=== PATIENT | male | born 1955 | race Caucasian/White ===

== ENCOUNTER → 2018-12-15 | Day surgery (SDC) | payer OTHER ==
[~2018-12-15] MED LIST: BUMETANIDE1 MG PO; CARVEDILOL12.5 MG PO; FOLIC ACID1 MG PO; INSULIN REGULAR, HUMAN 100 UNIT/1 ML 3ML VIAL ONE; LACTULOSE10 GM/151 PO; LEVEMIR100 UNIT/1 SQ; NOVOLOG100 UNITS1 SQ; OR PHACO EYE KIT ONE; PANTOPRAZOLE SO20 MG PO; PREOP PHACO EYE KIT ONE; SPIRONOLACTONE25 MG PO; Vitamin C PO; XIFAXAN550 MG PO; carvedilol
--- OUTSIDE RECORDS SUMMARY | 2018-12-15 05:16 | XMS REPORT | Continuity of Care Document ---
Author Author [place] Organization [place] Address Unknown Phone Unavailable Care Team Providers Care Melt Helper Name Role Phone Tell[employer] Information [employer] Unavailable Unavailable Problems Problem Status Onset Date Classification Date Reported Comments Source ASCITES Active 12/03/2018 [facility] BDDC ASCITES Active 12/01/2018 [facility] UNK Active 09/30/2018 [facility] EDG/C BANDING/COLON/MAC Active 09/30/2018 [facility] DDC // F/U VISIT Active 09/28/2018 [facility] Acquired hemolytic anemia Active Problem 12/10/2018 [facility] Ascites Active Problem 12/10/2018 [facility] Esophageal varices with bleeding Active Problem 12/10/2018 [facility] Overweight (Confirmed) Active Problem 12/10/2018 [facility] Chronic diastolic CHF (Confirmed) Active Problem 12/10/2018 [facility] CKD , stage III(Confirmed) Active Problem 12/10/2018 [facility] Chronic hepatitis C Resolved Problem 12/10/2018 [facility] Cirrhosis Active Problem 12/10/2018 [facility] Diabetes mellitus Active Problem 12/10/2018 [facility] Hepatic encephalopathy Active Problem 12/10/2018 [facility] High blood pressure Active Problem 12/10/2018 [facility] Atherosclerotic peripheral vascular disease Active Problem 12/10/2018 [facility] Continuous tobacco abuse Active Problem 12/10/2018 [facility] Poor compliance Active Problem 12/10/2018 [facility] Medications Medication Details Route Status Patient Instructions Ordering Provider Order Date Source Sodium Chloride 0.9% IV 1,000 mL 1,000 mL, Rate: 25 ml/hr, Infuse over: 40 hr, Route: IV, Dosing Weight 88.636 kg, Total Volume: 1,000, Start date: 11/16/18 7:56:00 CDT, Duration: 30 day, Stop date: 12/16/18 7:55:00 CDT, 2.13, m2 No Longer Active 11/16/2018 [facility] Aspirin 81 mg, PO, Daily Active 11/16/2018 [facility] Calcium Chloride 0.0014 MEQ/ML / Potassium Chloride 0.004 MEQ/ML / Sodium Chloride 0.103 MEQ/ML / Sodium Lactate 0.028 MEQ/ML Injectable Solution 1,000 mL, Rate: 25 ml/hr, Infuse over: 40 hr, Route: IV, Dosing Weight 88.545 kg, Total Volume: 1,000, Start date: 11/16/18 6:46:00 CDT, Duration: 30 day, Stop date: 12/16/18 6:45:00 CDT, 2.13, m2 Inactive 11/16/2018 [facility] Naloxone 0.4 mg, 1 mL, Route: IVP, Drug form: INJ, Q2MIN, Dosing Weight 88.545, kg, PRN Narcotic Reversal, Start date: 11/15/18 12:40:00 CDT, Duration: 8 doses or times, Stop date: Limited # of timesNotes: Same as Narcan No Longer Active 11/15/2018 [facility] Flumazenil 0.2 mg, 2 mL, Route: IVP, Drug form: INJ, PRN, Dosing Weight 88.545, kg, PRN Benzodiazepine Reversal, Initial dose, Start date: 11/15/18 12:40:00 CDT, Duration: 30 day, Stop date: 12/15/18 12:39:00 C DTNotes: (Same as: Romazicon) No Longer Active 11/15/2018 [facility] Ondansetron 4 mg, 2 mL, Route: IVP, Drug form: INJ, ONCE, Dosing Weight 88.545, kg, PRN Nausea & Vomiting, Start date: 11/15/18 12:40:00 CDTNotes: (Same as: Zofran) MEDICATION WASTE Product Size: 4 mg Product Wasted: ___ mg No Longer Active 11/15/2018 [facility] Metoprolol 1 mg, 1 mL, Route: IVP, Drug form: INJ, Q5Min, Dosing Weight 88.545, kg, PRN Other -See Comment, Start date: 11/15/18 12:40:00 CDT, Duration: 5 doses or times, Stop date: Limited # of timesNotes: (Same as: Lopressor) Push over 2 minutes No Longer Active 11/15/2018 [facility] carvedilol 12.5 mg oral tablet 12.5 mg=1 tab, PO, BID, # 60 tab, 3 Refill(s), [id number]2018 [facility] spironolactone 50 mg oral tablet 150 mg=3 tab, PO, Daily, # 90 tab, 1 Refill(s), [id number] Active 10/06/2018 [facility] pantoprazole 40 mg oral enteric coated tablet 40 mg=1 tab, PO, Daily, # 30 tab, 0 Refill(s) Active 10/06/2018 [facility] rifaximin 550 MG Oral Tablet [XIFAXAN] 550 mg=1 tab, PO, BID, # 60 tab, 11 Refill(s), Pharmacy: [facility] Active 10/05/2018 [facility] bumetanide 1 mg oral tablet 1 mg=1 tab, PO, BID, # 60 tab, 3 Refill(s), [id number] 10/05/2018 [facility] spironolactone 50 mg oral tablet 150 mg=3 tab, PO, Daily, X 30 day, # 90 tab, 3 Refill(s), [id number] No Longer Active 10/05/2018 [facility] Allergies, Adverse Reactions, Alerts Substance Category Reaction Severity Reaction type Status Date Reported Comments Source No Known Medication Allergies Assertion Drug allergy [facility] Immunizations No Data Provided for This Section Results Order Name Results Value Reference Range Date Interpretation Comments Source BODY FLUIDS Supernat BF Light Yellow *ABN* (12/08/18 10:00 AM) Colorless 12/08/2018 [facility] BODY FLUIDS Clarity BF Slight Cloudy (12/08/18 10:00 AM) Clear 12/08/2018 [facility] BODY FLUIDS CellCnt BF Type Paracen (12/08/18 10:00 AM) 12/08/2018 [facility] BODY FLUIDS Color BF Light Yellow (12/08/18 10:00 AM) Colorless 12/08/2018 [facility] BODY FLUIDS [place]o BF Occasional (12/08/18 10:00 AM) 12/08/2018 [facility] BODY FLUIDS Neutrophils BF 5 12/08/2018 [facility] BODY FLUIDS Macrophage BF 74 12/08/2018 [facility] BODY FLUIDS Lymph BF 21 12/08/2018 [facility] BODY FLUIDS Nucleated Cells BF 89 12/08/2018 [facility] BODY FLUIDS RBC BF 5100 12/08/2018 [facility] BODY FLUIDS CellCnt BF Type Paracen (12/03/18 10:35 AM) 12/03/2018 [facility] BODY FLUIDS Color BF Light Yellow (12/03/18 10:35 AM) Colorless 12/03/2018 [facility] BODY FLUIDS Macrophage BF 80 12/03/2018 [facility] BODY FLUIDS [place]o BF Occasional (12/03/18 10:35 AM) 12/03/2018 [facility] BODY FLUIDS Supernat BF Light Yellow *ABN* (12/03/18 10:35 AM) Colorless 12/03/2018 [facility] BODY FLUIDS Clarity BF Slight Cloudy (12/03/18 10:35 AM) Clear 12/03/2018 [facility] BODY FLUIDS Lymph BF 16 12/03/2018 [facility] BODY FLUIDS Nucleated Cells BF 64 12/03/2018 [facility] BODY FLUIDS RBC BF 3900 12/03/2018 [facility] BODY FLUIDS Neutrophils BF 4 12/03/2018 [facility] Culture: Aspirate/Body Fluid/Tissue 48 Hour Report - No Growth, Holding 12/03/2018 [facility] BODY FLUIDS Nucleated Cells BF 130 11/26/2018 [facility] BODY FLUIDS RBC BF 152 11/26/2018 [facility] BODY FLUIDS Comment BF Occasional signet ring cell seen. 11/26/2018 [facility] BODY FLUIDS Meso BF Occasional (11/26/18 12:15 PM) 11/26/2018 [facility] BODY FLUIDS Macrophage BF 89 11/26/2018 [facility] BODY FLUIDS Lymph BF 9 11/26/2018 [facility] BODY FLUIDS Neutrophils BF 2 11/26/2018 [facility] BODY FLUIDS Supernat BF Light Yellow *ABN* (11/26/18 12:15 PM) Colorless 11/26/2018 [facility] BODY FLUIDS Color BF Light Yellow (11/26/18 12:15 PM) Colorless 11/26/2018 [facility] BODY FLUIDS Clarity BF Clear (11/26/18 12:15 PM) Clear 11/26/2018 [facility] BODY FLUIDS CellCnt BF Type Paracen (11/26/18 12:15 PM) 11/26/2018 [facility] CHEM PANEL eGFR 59 11/26/2018 Result Comment: The eGFR is calculated using the CKD-EPI formula. In most young, healthy individuals the eGFR will be >90 mL/min/1.73m2. The eGFR declines with age. An eGFR of 60-89 may be normal in some populations, particularly the elderly, for whom the CKD-EPI formula has not been extensively validated. Use of the eGFR is not recommended in the following populations:

Individuals with unstable creatinine concentrations, including patients and those with serious co-morbid conditions.

Patients with extremes in muscle mass or diet.

The data above are obtained from the National Kidney Disease Education Program (NKDEP) which additionally recommends that when the eGFR is used in patients with extremes of body mass index for purposes of drug dosing, the eGFR should be multiplied by the estimated BMI. [facility] CHEM PANEL Calcium Lvl 8.0 8.5 - 10.5 11/26/2018 [facility] CHEM PANEL AGAP 11.7 10.0 - 20.0 11/26/2018 [facility] CHEM PANEL Potassium Lvl 4.7 3.5 - 5.1 11/26/2018 [facility] CHEM PANEL Chloride Lvl 107 95 - 109 11/26/2018 [facility] CHEM PANEL CO2 22 24 - 32 11/26/2018 [facility] CHEM PANEL Glucose Lvl 296 70 - 99 11/26/2018 [facility] CHEM PANEL BUN 35 7 - 22 11/26/2018 [facility] CHEM PANEL Creatinine Lvl 1.29 0.50 - 1.40 11/26/2018 [facility] CHEM PANEL Sodium Lvl 136 135 - 145 11/26/2018 [facility] BODY FLUIDS Supernat BF Light Yellow *ABN* (11/19/18 12:30 PM) Colorless 11/19/2018 [facility] BODY FLUIDS Clarity BF Clear (11/19/18 12:30 PM) Clear 11/19/2018 [facility] BODY FLUIDS Nucleated Cells BF 94 11/19/2018 [facility] BODY FLUIDS Neutrophils BF 8 11/19/2018 [facility] BODY FLUIDS RBC BF 44 11/19/2018 [facility] BODY FLUIDS Macrophage BF 46 11/19/2018 [facility] BODY FLUIDS Lymph BF 46 11/19/2018 [facility] BODY FLUIDS [place]o BF Occasional (11/19/18 12:30 PM) 11/19/2018 [facility] BODY FLUIDS CellCnt BF Type Paracen (11/19/18 12:30 PM) 11/19/2018 [facility] BODY FLUIDS Color BF Yellow (11/19/18 12:30 PM) Colorless 11/19/2018 [facility] CHEM PANEL eGFR 44 11/19/2018 Result Comment: The eGFR is calculated using the CKD-EPI formula. In most young, healthy individuals the eGFR will be >90 mL/min/1.73m2. The eGFR declines with age. An eGFR of 60-89 may be normal in some populations, particularly the elderly, for whom the CKD-EPI formula has not been extensively validated. Use of the eGFR is not recommended in the following populations:

Individuals with unstable creatinine concentrations, including patients and those with serious co-morbid conditions.

Patients with extremes in muscle mass or diet.

The data above are obtained from the National Kidney Disease Education Program (NKDEP) which additionally recommends that when the eGFR is used in patients with extremes of body mass index for purposes of drug dosing, the eGFR should be multiplied by the estimated BMI. [facility] CHEM PANEL Potassium Lvl 4.1 3.5 - 5.1 11/19/2018 [facility] CHEM PANEL Creatinine Lvl 1.67 0.50 - 1.40 11/19/2018 [facility] CHEM PANEL BUN 28 7 - 22 11/19/2018 [facility] CHEM PANEL Calcium Lvl 7.7 8.5 - 10.5 11/19/2018 [facility] CHEM PANEL Chloride Lvl 109 95 - 109 11/19/2018 [facility] CHEM PANEL Sodium Lvl 139 135 - 145 11/19/2018 [facility] CHEM PANEL CO2 27 24 - 32 11/19/2018 [facility] CHEM PANEL Glucose Lvl 110 70 - 99 11/19/2018 [facility] CHEM PANEL AGAP 7.1 10.0 - 20.0 11/19/2018 [facility] CHEM PANEL Bili Total 0.8 0.2 - 1.3 11/19/2018 [facility] CHEM PANEL Alk Phos 188 39 - 136 11/19/2018 [facility] CHEM PANEL Bili Indirect 0.4 0.0 - 1.0 11/19/2018 [facility] CHEM PANEL Bili Direct 0.4 0.0 - 0.3 11/19/2018 [facility] CHEM PANEL Total Protein 7.1 6.4 - 8.4 11/19/2018 [facility] CHEM PANEL AST 25 0 - 37 11/19/2018 [facility] CHEM PANEL ALT 21 0 - 65 11/19/2018 [facility] CHEM PANEL Albumin Lvl 2.5 3.5 - 5.0 11/19/2018 [facility] CHEM PANEL Globulin 4.6 2.7 - 4.2 11/19/2018 [facility] CHEM PANEL A/G Ratio 0.5 0.7 - 1.6 11/19/2018 [facility] HEMATOLOGY PT 13.6 12.0 - 14.7 11/19/2018 [facility] HEMATOLOGY INR 1.06 0.85 - 1.17 11/19/2018 [facility] HEMATOLOGY MCH 32.3 27.0 - 31.0 11/19/2018 [facility] HEMATOLOGY MPV 7.1 7.4 - 10.4 11/19/2018 [facility] HEMATOLOGY MCHC 33.9 32.0 - 36.0 11/19/2018 [facility] HEMATOLOGY Platelet 136 133 - 450 11/19/2018 [facility] HEMATOLOGY RDW 17.2 11.5 - 14.5 11/19/2018 [facility] HEMATOLOGY WBC 4.3 3.7 - 10.4 11/19/2018 [facility] HEMATOLOGY Hct 23.5 42.0 - 54.0 11/19/2018 [facility] HEMATOLOGY MCV 95.1 80.0 - 94.0 11/19/2018 [facility] HEMATOLOGY RBC 2.47 4.70 - 6.10 11/19/2018 [facility] HEMATOLOGY Hgb 8.0 14.0 - 18.0 11/19/2018 [facility] HEMATOLOGY Basophils 0.8 0.0 - 1.0 11/19/2018 [facility] HEMATOLOGY Lymphocytes 26.0 20.0 - 40.0 11/19/2018 [facility] HEMATOLOGY Segs 55.3 45.0 - 75.0 11/19/2018 [facility] HEMATOLOGY Monocytes 13.2 2.0 - 12.0 11/19/2018 [facility] HEMATOLOGY Eosinophils 4.7 0.0 - 4.0 11/19/2018 [facility] HEMATOLOGY Neutrophils # 2.4 1.5 - 8.1 11/19/2018 [facility] HEMATOLOGY Eosinophils # 0.2 0.0 - 0.5 11/19/2018 [facility] HEMATOLOGY Monocytes # 0.6 0.0 - 0.8 11/19/2018 [facility] HEMATOLOGY Lymphocytes # 1.1 1.0 - 5.5 11/19/2018 [facility] ELECTROLYTES Potassium Lvl 4.3 3.5 - 5.1 11/16/2018 [facility] BODY FLUIDS Color BF Light Yellow (10/27/18 8:09 AM) Colorless 10/27/2018 [facility] BODY FLUIDS Supernat BF Light Yellow *ABN* (10/27/18 8:09 AM) Colorless 10/27/2018 [facility] BODY FLUIDS Clarity BF Clear (10/27/18 8:09 AM) Clear 10/27/2018 [facility] BODY FLUIDS Meso BF Occasional (10/27/18 8:09 AM) 10/27/2018 [facility] BODY FLUIDS Macrophage BF 88 10/27/2018 [facility] BODY FLUIDS CellCnt BF Type Paracen (10/27/18 8:09 AM) 10/27/2018 [facility] BODY FLUIDS RBC BF 143 10/27/2018 [facility] BODY FLUIDS Lymph BF 6 10/27/2018 [facility] BODY FLUIDS Neutrophils BF 2 10/27/2018 [facility] BODY FLUIDS Nucleated Cells BF 125 10/27/2018 [facility] CHEM PANEL eGFR 48 10/27/2018 Result Comment: The eGFR is calculated using the CKD-EPI formula. In most young, healthy individuals the eGFR will be >90 mL/min/1.73m2. The eGFR declines with age. An eGFR of 60-89 may be normal in some populations, particularly the elderly, for whom the CKD-EPI formula has not been extensively validated. Use of the eGFR is not recommended in the following populations:

Individuals with unstable creatinine concentrations, including patients and those with serious co-morbid conditions.

Patients with extremes in muscle mass or diet.

The data above are obtained from the National Kidney Disease Education Program (NKDEP) which additionally recommends that when the eGFR is used in patients with extremes of body mass index for purposes of drug dosing, the eGFR should be multiplied by the estimated BMI. [facility] CHEM PANEL Calcium Lvl 7.8 8.5 - 10.5 10/27/2018 [facility] CHEM PANEL AGAP 10.8 10.0 - 20.0 10/27/2018 [facility] CHEM PANEL Potassium Lvl 4.8 3.5 - 5.1 10/27/2018 [facility] CHEM PANEL Glucose Lvl 257 70 - 99 10/27/2018 [facility] CHEM PANEL CO2 22 24 - 32 10/27/2018 [facility] CHEM PANEL Chloride Lvl 106 95 - 109 10/27/2018 [facility] CHEM PANEL BUN 31 7 - 22 10/27/2018 [facility] CHEM PANEL Sodium Lvl 134 135 - 145 10/27/2018 [facility] CHEM PANEL Creatinine Lvl 1.53 0.50 - 1.40 10/27/2018 [facility] ANEMIA STUDY % [place] 74 12 - 57 10/05/2018 [facility] ANEMIA STUDY UIBC 81 110 - 370 10/05/2018 [facility] ANEMIA STUDY Iron 235 45 - 160 10/05/2018 [facility] ANEMIA STUDY TIBC 316 228 - 428 10/05/2018 [facility] ANEMIA STUDY Ferritin Lvl 28 22 - 275 10/05/2018 [facility] CHEM PANEL A/G Ratio 0.5 0.7 - 1.6 10/05/2018 [facility] CHEM PANEL Globulin 4.6 2.7 - 4.2 10/05/2018 [facility] CHEM PANEL Bili Indirect 0.4 0.0 - 1.0 10/05/2018 [facility] CHEM PANEL ALT 21 0 - 65 10/05/2018 [facility] CHEM PANEL Albumin Lvl 2.5 3.5 - 5.0 10/05/2018 [facility] CHEM PANEL AST 32 0 - 37 10/05/2018 [facility] CHEM PANEL Alk Phos 238 39 - 136 10/05/2018 [facility] CHEM PANEL Bili Direct 0.3 0.0 - 0.3 10/05/2018 [facility] CHEM PANEL Bili Total 0.7 0.2 - 1.3 10/05/2018 [facility] CHEM PANEL Total Protein 7.1 6.4 - 8.4 10/05/2018 [facility] CHEM PANEL eGFR 56 10/05/2018 Result Comment: The eGFR is calculated using the CKD-EPI formula. In most young, healthy individuals the eGFR will be >90 mL/min/1.73m2. The eGFR declines with age. An eGFR of 60-89 may be normal in some populations, particularly the elderly, for whom the CKD-EPI formula has not been extensively validated. Use of the eGFR is not recommended in the following populations:

Individuals with unstable creatinine concentrations, including patients and those with serious co-morbid conditions.

Patients with extremes in muscle mass or diet.

The data above are obtained from the National Kidney Disease Education Program (NKDEP) which additionally recommends that when the eGFR is used in patients with extremes of body mass index for purposes of drug dosing, the eGFR should be multiplied by the estimated BMI. [facility] CHEM PANEL Calcium Lvl 7.8 8.5 - 10.5 10/05/2018 [facility] CHEM PANEL Chloride Lvl 111 95 - 109 10/05/2018 [facility] CHEM PANEL CO2 23 24 - 32 10/05/2018 [facility] CHEM PANEL Sodium Lvl 140 135 - 145 10/05/2018 [facility] CHEM PANEL Potassium Lvl 4.2 3.5 - 5.1 10/05/2018 [facility] CHEM PANEL Creatinine Lvl 1.35 0.50 - 1.40 10/05/2018 [facility] CHEM PANEL BUN 27 7 - 22 10/05/2018 [facility] CHEM PANEL Glucose Lvl 191 70 - 99 10/05/2018 [facility] CHEM PANEL AGAP 10.2 10.0 - 20.0 10/05/2018 [facility] HEMATOLOGY PT 13.7 12.0 - 14.7 10/05/2018 [facility] HEMATOLOGY INR 1.07 0.85 - 1.17 10/05/2018 [facility] HEMATOLOGY Platelet 129 133 - 450 10/05/2018 [facility] HEMATOLOGY MCHC 34.5 32.0 - 36.0 10/05/2018 [facility] HEMATOLOGY RDW 15.2 11.5 - 14.5 10/05/2018 [facility] HEMATOLOGY RBC 2.29 4.70 - 6.10 10/05/2018 [facility] HEMATOLOGY MCH 33.7 27.0 - 31.0 10/05/2018 [facility] HEMATOLOGY MCV 97.6 80.0 - 94.0 10/05/2018 [facility] HEMATOLOGY Hgb 7.7 14.0 - 18.0 10/05/2018 [facility] HEMATOLOGY Hct 22.4 42.0 - 54.0 10/05/2018 [facility] HEMATOLOGY WBC 4.3 3.7 - 10.4 10/05/2018 [facility] HEMATOLOGY MPV 7.4 7.4 - 10.4 10/05/2018 [facility] HEMATOLOGY Eosinophils # 0.2 0.0 - 0.5 10/05/2018 [facility] HEMATOLOGY Monocytes # 0.5 0.0 - 0.8 10/05/2018 [facility] HEMATOLOGY Lymphocytes # 1.1 1.0 - 5.5 10/05/2018 [facility] HEMATOLOGY Eosinophils 3.8 0.0 - 4.0 10/05/2018 [facility] HEMATOLOGY Monocytes 12.5 2.0 - 12.0 10/05/2018 [facility] HEMATOLOGY Lymphocytes 24.7 20.0 - 40.0 10/05/2018 [facility] HEMATOLOGY Basophils 0.4 0.0 - 1.0 10/05/2018 [facility] HEMATOLOGY Neutrophils # 2.5 1.5 - 8.1 10/05/2018 [facility] HEMATOLOGY Segs 58.6 45.0 - 75.0 10/05/2018 [facility] IMMUNOLOGY Hep A Tot Positive *NA* (10/05/18 2:50 PM) Negative 10/05/2018 [facility] IMMUNOLOGY Hep Bs Ab <3.1 <=7.4 mIU/mL 10/05/2018 [facility] TUMOR MARKERS AFP 2.7 0.0 - 11.0 10/05/2018 [facility] Pathology Reports No Data Provided for This Section Diagnostic Reports No Data Provided for This Section Consultation Notes No Data Provided for This Section Discharge Summaries No Data Provided for This Section History and Physicals No Data Provided for This Section Vital Signs Vital Sign Value Date Comments Source Respitory Rate 20 11/16/2018 [facility] Systolic (mm Hg) 147 11/16/2018 [facility] Diastolic (mm Hg) 86 11/16/2018 [facility] Respitory Rate 16 11/16/2018 [facility] Systolic (mm Hg) 147 11/16/2018 [facility] Diastolic (mm Hg) 82 11/16/2018 [facility] Respitory Rate 13 11/16/2018 [facility] Systolic (mm Hg) 145 11/16/2018 [facility] Diastolic (mm Hg) 82 11/16/2018 [facility] Weight 88.636 11/16/2018 [facility] BMI Calculated 26.5 11/16/2018 [facility] Height 182.88 cm 11/16/2018 [facility] Weight 88.545 10/05/2018 [facility] Height 182.88 cm 10/05/2018 [facility] BMI Calculated 26.47 10/05/2018 [facility] Heart Rate 111 10/05/2018 [facility] Respitory Rate 16 10/05/2018 [facility] Systolic (mm Hg) 124 10/05/2018 [facility] Diastolic (mm Hg) 76 10/05/2018 [facility] Encounters Location Location Details Encounter Type Encounter Number Reason For Visit Attending Provider ADM Date DC Date Status Source [facility] [id number] Charbel Ospina 10/05/2018 10/06/2018 [facility] [id number] Justin Jc 10/27/2018 10/28/2018 [facility] Outpatient [id number] Luis Armando Hoang 11/16/2018 11/16/2018 [facility] Bed[facility] Outpatient [id number] Justin Jc 11/19/2018 11/19/2018 [facility] Bedded Outpatient [id number] Lela Matthews 11/26/2018 11/26/2018 [facility] Bedded Outpatient [id number] Justin Cheneyfred 12/03/2018 12/03/2018 [facility] Bedded Outpatient [id number] Justin Cheneyfred 12/08/2018 12/08/2018 [facility] Procedures Procedure Code Date Perfomer Comments Source Angioplasty [id number] [facility] Foot repair [id number] [facility] Angioplasty [id number] [facility] Foot repair [id number] [facility] Assessment and Plan No Data Provided for This Section Plan of Care No Data Provided for This Section Social History Social History Date Source Social History TypeResponse Substance Abuse Use: Past. Type: Cocaine. Recreational Drug Route: Inhaled, Intravenous. IV drug use: Yes.1 Alcohol Past, Type Liquor. Frequency: 1-2 times per year. Alcohol use interferes with work or home: No. Drinks more than intended: No. Others hurt by drinking: No. Smoking Status Current every day smoker; Type: Cigarettes; Exposure to Tobacco Smoke None; Cigarette Smoking Last 365 Days Yes; Reg Smoking Cessation Counseling No; Number of years: 25; Started at age: 22.0; entered on: 11/16/18 1patient did drugs in the past and states no longer does it 11/16/2018 [facility] Social History TypeResponse Substance Abuse Use: Past. Type: Cocaine. Recreational Drug Route: Inhaled, Intravenous. IV drug use: Yes.1 Alcohol Past, Type Liquor. Frequency: 1-2 times per year. Alcohol use interferes with work or home: No. Drinks more than intended: No. Others hurt by drinking: No. Smoking Status Current every day smoker; Type: Cigarettes; Exposure to Tobacco Smoke None; Cigarette Smoking Last 365 Days Yes; Reg Smoking Cessation Counseling No; Number of years: 25; Started at age: 22.0; entered on: 11/16/18 1patient did drugs in the past and states no longer does it 11/16/2018 [facility] Family History No Data Provided for This Section Advance Directives No Data Provided for This Section Functional Status No Data Provided for This Section
--- OUTSIDE RECORDS SUMMARY | 2018-12-15 05:17 | XMS REPORT | Summary of Care ---
Author Author [facility] Organization [facility] Address Unknown Phone Unavailable Encounter DIANDRA Johnson(ANNITA) [id number] Date(s): 12/03/18 - 12/03/18 [facility] [address] [place], [place] [address] Discharge Disposition: Home or Self Care Attending Physician: Justin Jc MD Referring Physician: Kisha Lewis Vital Signs No data available for this section Problem List Condition Effective Dates Status Health Status Informant Acquired hemolytic Active anemia(Confirmed) Ascites(Confirmed) Active Esophageal varices Active with bleeding(Confirmed) Overweight (BMI Active 25.0-29.9)(Confirmed ) Chronic diastolic Active CHF (congestive heart failure)(Confirmed) CKD (chronic kidney Active disease), stage III(Confirmed) Chronic hepatitis Resolved C(Confirmed) Cirrhosis(Confirmed) Active Diabetes Active mellitus(Confirmed) Hepatic Active encephalopathy(Confi rmed) High blood Active pressure(Confirmed) Atherosclerotic Active peripheral vascular disease(Confirmed) Continuous tobacco Active abuse(Confirmed) Poor Active compliance(Confirmed ) Allergies, Adverse Reactions, Alerts No Known Medication Allergies Medications No data available for this section Results Most recent to 1 oldest [Reference Range]: Macrophage BF 80 % *NA* (12/03/18 10:35 AM) Color BF [Colorless] Light Yellow (12/03/18 10:35 AM) Lymph BF 16 % *NA* (12/03/18 10:35 AM) Neutrophils BF 4 % *NA* (12/03/18 10:35 AM) RBC BF 3900 /mm3 *NA* (12/03/18 10:35 AM) Supernat BF Light Yellow [Colorless] *ABN* (12/03/18 10:35 AM) Clarity BF [Clear] Slight Cloudy (12/03/18 10:35 AM) Nucleated Cells BF 64 /mm3 *NA* (12/03/18 10:35 AM) CellCnt BF Type Paracen (12/03/18 10:35 AM) Meso BF Occasional (12/03/18 10:35 AM) Microbiology Reports TEST: Culture: Aspirate/Body Fluid/Tissue STATUS: Order in Progress BODY SITE: SOURCE: Paracentesis Fluid COLLECTED DATE/TIME: 12/03/18 10:35 AM PRELIMINARY REPORT 48 Hour Report - No Growth, Holding Immunizations No data available for this section Procedures Procedure Date Related Diagnosis Body Site Status Angioplasty Completed Foot repair Completed Social History Social History Type Response Substance Abuse Use: Past. Type: Cocaine. Recreational [...] past and states no longer does it Assessment and Plan No data available for this section
--- OUTSIDE RECORDS SUMMARY | 2018-12-15 05:17 | XMS REPORT | Summary of Care ---
Author Author [facility] Organization [facility] Address Unknown Phone Unavailable Encounter DIANDRA Johnson(ANNITA) [id number] Date(s): 12/08/18 - 12/08/18 [facility] [address] [place], [place] [address]- [phone] Discharge Disposition: Home or Self Care Attending Physician: Justin Jc MD Referring Physician: Justin Jc MD Vital Signs No data available for this [...] to 1 oldest [Reference Range]: Macrophage BF 74 % *NA* (12/08/18 10:00 AM) Color BF [Colorless] Light Yellow (12/08/18 10:00 AM) Lymph BF 21 % *NA* (12/08/18 10:00 AM) Neutrophils BF 5 % *NA* (12/08/18 10:00 AM) RBC BF 5100 /mm3 *NA* (12/08/18 10:00 AM) Supernat BF Light Yellow [Colorless] *ABN* (12/08/18 10:00 AM) Clarity BF [Clear] Slight Cloudy (12/08/18 10:00 AM) Nucleated Cells BF 89 /mm3 *NA* (12/08/18 10:00 AM) CellCnt BF Type Paracen (12/08/18 10:00 AM) Meso BF Occasional (12/08/18 10:00 AM) Immunizations No data available for this section [...]
--- OUTSIDE RECORDS SUMMARY | 2018-12-15 05:18 | XMS REPORT | Summary of Care ---
Author Author [facility] Organization [facility] Address Unknown Phone Unavailable Encounter DIANDRA Johnson(ANNITA) [id number] Date(s): 10/05/18 - 10/05/18 [facility] [address] [place] [address]- Discharge Disposition: Home or Self Care Attending Physician: Charbel Robison MD Referring Physician: Charbel Robison MD Vital Signs Most recent to 1 oldest [Reference Range]: Height 182.88 cm (10/05/18 12:45 PM) Blood Pressure 124/76 mmHg [90-140/60-90 mmHg] (10/05/18 12:45 PM) Respiratory Rate 16 BRMIN [14-20 BRMIN] (10/05/18 12:45 PM) Peripheral Pulse 111 bpm Rate [60-100 bpm] *HI* (10/05/18 12:45 PM) Weight 88.545 kg (10/05/18 12:45 PM) Body Mass Index 26.47 m2 (10/05/18 12:45 PM) Problem List Condition Effective Dates Status Health [...] Reactions, Alerts No Known Medication Allergies Medications bumetanide 1 mg oral tablet 1 mg=1 tab, PO, BID, # 60 tab, 3 Refill(s), [id number] Start Date: 10/05/18 Stop Date: 02/02/19 Status: Ordered carvedilol 12.5 mg oral tablet 12.5 mg=1 tab, PO, BID, # 60 tab, 3 Refill(s), [id number] Start Date: 10/06/18 Stop Date: 02/03/19 Status: Ordered pantoprazole 40 mg oral enteric coated tablet 40 mg=1 tab, PO, Daily, # 30 tab, 0 Refill(s) Start Date: 10/06/18 Status: Ordered spironolactone 50 mg oral tablet 150 mg=3 tab, PO, Daily, # 90 tab, 1 Refill(s), [id number] Start Date: 10/06/18 Stop Date: 12/05/18 Status: Ordered spironolactone 50 mg oral tablet 150 mg=3 tab, PO, Daily, X 30 day, # 90 tab, 3 Refill(s), [id number] Start Date: 10/05/18 Stop Date: 10/06/18 Status: Completed Xifaxan 550 mg oral tablet 550 mg=1 tab, PO, BID, # 60 tab, 11 Refill(s), Pharmacy: [facility] Start Date: 10/05/18 Stop Date: 09/30/19 Status: Ordered Results Most recent to 1 oldest [Reference Range]: Neutrophils # 2.5 K/CMM [1.5-8.1 K/CMM] (10/05/18 2:50 PM) Lymphocytes # 1.1 K/CMM [1.0-5.5 K/CMM] (10/05/18 2:50 PM) Monocytes # [0.0-0.8 0.5 K/CMM K/CMM] (10/05/18 2:50 PM) Eosinophils # 0.2 K/CMM [0.0-0.5 K/CMM] (10/05/18 2:50 PM) Bili Indirect 0.4 mg/dL [0.0-1.0 mg/dL] (10/05/18 2:50 PM) eGFR 56 mL/min/1.73m2 1 *NA* (10/05/18 2:50 PM) % Satur Fe [12-57 %] 74 % *HI* (10/05/18 2:50 PM) A/G Ratio [0.7-1.6] 0.5 *LOW* (10/05/18 2:50 PM) AFP TM [0.0-11.0 2.7 ng/mL ng/mL] (10/05/18 2:50 PM) Albumin Lvl [3.5-5.0 2.5 g/dL g/dL] *LOW* (10/05/18 2:50 PM) Alk Phos [39-136 238 unit/L unit/L] *HI* (10/05/18 2:50 PM) ALT [0-65 unit/L] 21 unit/L (10/05/18 2:50 PM) AGAP [10.0-20.0 10.2 mEq/L mEq/L] (10/05/18 2:50 PM) AST [0-37 unit/L] 32 unit/L (10/05/18 2:50 PM) Basophils [0.0-1.0 0.4 % %] (10/05/18 2:50 PM) BUN [7-22 mg/dL] 27 mg/dL *HI* (10/05/18 2:50 PM) Calcium Lvl 7.8 mg/dL [8.5-10.5 mg/dL] *LOW* (10/05/18 2:50 PM) Chloride Lvl [95-109 111 mEq/L mEq/L] *HI* (10/05/18 2:50 PM) CO2 [24-32 mEq/L] 23 mEq/L *LOW* (10/05/18 2:50 PM) Creatinine Lvl 1.35 mg/dL [0.50-1.40 mg/dL] (10/05/18 2:50 PM) Bili Direct [0.0-0.3 0.3 mg/dL mg/dL] (10/05/18 2:50 PM) Eosinophils [0.0-4.0 3.8 % %] (10/05/18 2:50 PM) Ferritin Lvl [22-275 28 ng/mL ng/mL] (10/05/18 2:50 PM) Globulin [2.7-4.2 4.6 g/dL g/dL] *HI* (10/05/18 2:50 PM) Glucose Lvl [70-99 191 mg/dL mg/dL] *HI* (10/05/18 2:50 PM) Hep A Tot [Negative] Positive *NA* (10/05/18 2:50 PM) Hep Bs Ab [<=7.4 <3.1 mIU/mL mIU/mL] (10/05/18 2:50 PM) Hct [42.0-54.0 %] 22.4 % *LOW* (10/05/18 2:50 PM) Hgb [14.0-18.0 g/dL] 7.7 g/dL *LOW* (10/05/18 2:50 PM) INR [0.85-1.17] 1.07 (10/05/18 2:50 PM) Iron [45-160 ug/dl] 235 ug/dl *HI* (10/05/18 2:50 PM) Potassium Lvl 4.2 mEq/L [3.5-5.1 mEq/L] (10/05/18 2:50 PM) Lymphocytes 24.7 % [20.0-40.0 %] (10/05/18 2:50 PM) MCH [27.0-31.0 pg] 33.7 pg *HI* (10/05/18 2:50 PM) MCHC [32.0-36.0 34.5 g/dL g/dL] (10/05/18 2:50 PM) MCV [80.0-94.0 fL] 97.6 fL *HI* (10/05/18 2:50 PM) Monocytes [2.0-12.0 12.5 % %] *HI* (10/05/18 2:50 PM) MPV [7.4-10.4 fL] 7.4 fL (10/05/18 2:50 PM) Sodium Lvl [135-145 140 mEq/L mEq/L] (10/05/18 2:50 PM) Platelet [133-450 129 K/CMM K/CMM] *LOW* (10/05/18 2:50 PM) Segs [45.0-75.0 %] 58.6 % (10/05/18 2:50 PM) Total Protein 7.1 g/dL [6.4-8.4 g/dL] (10/05/18 2:50 PM) PT [12.0-14.7 13.7 seconds seconds] (10/05/18 2:50 PM) RBC [4.70-6.10 2.29 M/CMM M/CMM] *LOW* (10/05/18 2:50 PM) RDW [11.5-14.5 %] 15.2 % *HI* (10/05/18 2:50 PM) Bili Total [0.2-1.3 0.7 mg/dL mg/dL] (10/05/18 2:50 PM) TIBC [228-428 ug/dl] 316 ug/dl (10/05/18 2:50 PM) UIBC [110-370 ug/dl] 81 ug/dl *LOW* (10/05/18 2:50 PM) WBC [3.7-10.4 K/CMM] 4.3 K/CMM (10/05/18 2:50 PM) 1Result Comment: The eGFR is calculated using the [...] from the National Kidney Disease Education Program ( NKDEP) which additionally recommends that when the eGFR is used in patients with extremes of body mass index for purposes of drug dosing, the eGFR should be mul tiplied by the estimated BMI. Immunizations No data available for this section [...] 27; Started at age: 22.0; entered on: 10/05/18 1patient did drugs in the past and states no longer does it Assessment and Plan No data available for this section
--- OUTSIDE RECORDS SUMMARY | 2018-12-15 05:18 | XMS REPORT | Summary of Care ---
Author Author [facility] Organization [facility] Address Unknown Phone Unavailable Encounter HQ Alex(ANNITA) [id number] Date(s): 11/19/18 - 11/19/18 [facility] [place] [facility] [address] [place], [place] [address] [phone] Discharge Disposition: Home or Self Care Attending [...] to 1 oldest [Reference Range]: Neutrophils # 2.4 K/CMM [1.5-8.1 K/CMM] (11/19/18 10:15 AM) Lymphocytes # 1.1 K/CMM [1.0-5.5 K/CMM] (11/19/18 10:15 AM) Monocytes # [0.0-0.8 0.6 K/CMM K/CMM] (11/19/18 10:15 AM) Eosinophils # 0.2 K/CMM [0.0-0.5 K/CMM] (11/19/18 10:15 AM) Bili Indirect 0.4 mg/dL [0.0-1.0 mg/dL] (11/19/18 10:15 AM) eGFR 44 mL/min/1.73m2 1 *NA* (11/19/18 10:15 AM) Macrophage BF 46 % *NA* (11/19/18 12:30 PM) A/G Ratio [0.7-1.6] 0.5 *LOW* (11/19/18 10:15 AM) Albumin Lvl [3.5-5.0 2.5 g/dL g/dL] *LOW* (11/19/18 10:15 AM) Alk Phos [39-136 188 unit/L unit/L] *HI* (11/19/18 10:15 AM) ALT [0-65 unit/L] 21 unit/L (11/19/18 10:15 AM) AGAP [10.0-20.0 7.1 mEq/L mEq/L] *LOW* (11/19/18 10:15 AM) AST [0-37 unit/L] 25 unit/L (11/19/18 10:15 AM) Basophils [0.0-1.0 0.8 % %] (11/19/18 10:15 AM) Color BF [Colorless] Yellow (11/19/18 12:30 PM) Lymph BF 46 % *NA* (11/19/18 12:30 PM) Neutrophils BF 8 % *NA* (11/19/18 12:30 PM) RBC BF 44 /mm3 *NA* (11/19/18 12:30 PM) Supernat BF Light Yellow [Colorless] *ABN* (11/19/18 12:30 PM) Clarity BF [Clear] Clear (11/19/18 12:30 PM) Nucleated Cells BF 94 /mm3 *NA* (11/19/18 12:30 PM) BUN [7-22 mg/dL] 28 mg/dL *HI* (11/19/18 10:15 AM) Calcium Lvl 7.7 mg/dL [8.5-10.5 mg/dL] *LOW* (11/19/18 10:15 AM) Chloride Lvl [95-109 109 mEq/L mEq/L] (11/19/18 10:15 AM) CO2 [24-32 mEq/L] 27 mEq/L (11/19/18 10:15 AM) Creatinine Lvl 1.67 mg/dL [0.50-1.40 mg/dL] *HI* (11/19/18 10:15 AM) Bili Direct [0.0-0.3 0.4 mg/dL mg/dL] *HI* (11/19/18 10:15 AM) Eosinophils [0.0-4.0 4.7 % %] *HI* (11/19/18 10:15 AM) CellCnt BF Type Paracen (11/19/18 12:30 PM) Globulin [2.7-4.2 4.6 g/dL g/dL] *HI* (11/19/18 10:15 AM) Glucose Lvl [70-99 110 mg/dL mg/dL] *HI* (11/19/18 10:15 AM) Hct [42.0-54.0 %] 23.5 % *LOW* (11/19/18 10:15 AM) Hgb [14.0-18.0 g/dL] 8.0 g/dL *LOW* (11/19/18 10:15 AM) INR [0.85-1.17] 1.06 (11/19/18 10:15 AM) Potassium Lvl 4.1 mEq/L [3.5-5.1 mEq/L] (11/19/18 10:15 AM) Lymphocytes 26.0 % [20.0-40.0 %] (11/19/18 10:15 AM) MCH [27.0-31.0 pg] 32.3 pg *HI* (11/19/18 10:15 AM) MCHC [32.0-36.0 33.9 g/dL g/dL] (11/19/18 10:15 AM) MCV [80.0-94.0 fL] 95.1 fL *HI* (11/19/18 10:15 AM) Meso BF Occasional (11/19/18 12:30 PM) Monocytes [2.0-12.0 13.2 % %] *HI* (11/19/18 10:15 AM) MPV [7.4-10.4 fL] 7.1 fL *LOW* (11/19/18 10:15 AM) Sodium Lvl [135-145 139 mEq/L mEq/L] (11/19/18 10:15 AM) Platelet [133-450 136 K/CMM K/CMM] (11/19/18 10:15 AM) Segs [45.0-75.0 %] 55.3 % (11/19/18 10:15 AM) Total Protein 7.1 g/dL [6.4-8.4 g/dL] (11/19/18 10:15 AM) PT [12.0-14.7 13.6 seconds seconds] (11/19/18 10:15 AM) RBC [4.70-6.10 2.47 M/CMM M/CMM] *LOW* (11/19/18 10:15 AM) RDW [11.5-14.5 %] 17.2 % *HI* (11/19/18 10:15 AM) Bili Total [0.2-1.3 0.8 mg/dL mg/dL] (11/19/18 10:15 AM) WBC [3.7-10.4 K/CMM] 4.3 K/CMM (11/19/18 10:15 AM) 1Result Comment: The eGFR is calculated using [...]
--- OUTSIDE RECORDS SUMMARY | 2018-12-15 05:18 | XMS REPORT | Summary of Care ---
Author Author [facility] Organization [facility] Address Unknown Phone Unavailable Encounter DIANDRA Johnson(ANNITA) [id number] Date(s): 11/26/18 - 11/26/18 [facility] [address] [place], [place] [address] [phone] Discharge Disposition: Home or Self Care Attending Physician: Lela Matthews MD Referring Physician: Kisha Lewis Vital Signs [...] Most recent to 1 oldest [Reference Range]: eGFR 59 mL/min/1.73m2 1 *NA* (11/26/18 12:15 PM) Macrophage BF 89 % *NA* (11/26/18 12:15 PM) AGAP [10.0-20.0 11.7 mEq/L mEq/L] (11/26/18 12:15 PM) Color BF [Colorless] Light Yellow (11/26/18 12:15 PM) Lymph BF 9 % *NA* (11/26/18 12:15 PM) Neutrophils BF 2 % *NA* (11/26/18 12:15 PM) RBC BF 152 /mm3 *NA* (11/26/18 12:15 PM) Supernat BF Light Yellow [Colorless] *ABN* (11/26/18 12:15 PM) Clarity BF [Clear] Clear (11/26/18 12:15 PM) Nucleated Cells BF 130 /mm3 *NA* (11/26/18 12:15 PM) BUN [7-22 mg/dL] 35 mg/dL *HI* (11/26/18 12:15 PM) Calcium Lvl 8.0 mg/dL [8.5-10.5 mg/dL] *LOW* (11/26/18 12:15 PM) Chloride Lvl [95-109 107 mEq/L mEq/L] (11/26/18 12:15 PM) CO2 [24-32 mEq/L] 22 mEq/L *LOW* (11/26/18:15 PM) Creatinine Lvl 1.29 mg/dL [0.50-1.40 mg/dL] (11/26/18 12:15 PM) CellCnt BF Type Paracen (11/26/18 12:15 PM) Glucose Lvl [70-99 296 mg/dL mg/dL] *HI* (11/26/18 12:15 PM) Potassium Lvl 4.7 mEq/L [3.5-5.1 mEq/L] (11/26/18 12:15 PM) Meso BF Occasional (11/26/18:15 PM) Sodium Lvl [135-145 136 mEq/L mEq/L] (11/26/18 12:15 PM) Comment BF Occasional signet ring cell seen. *NA* (11/26/18 12:15 PM) 1Result Comment: The eGFR is calculated [...]
--- OUTSIDE RECORDS SUMMARY | 2018-12-15 05:18 | XMS REPORT | Summary of Care ---
Author Author [facility] Organization [facility] Address Unknown Phone Unavailable Encounter DIANDRA Johnson(ANNITA) [id number] Date(s): 11/16/18 - 11/16/18 [facility] [address] [place] [address]- [facility] [phone] Discharge Disposition: Home or Self Care Attending Physician: Luis Armando Hoang MD Referring Physician: Luis Armando Hoang MD Vital Signs 1 2 3 Most recent to oldest [Reference Range]: 182.88 cm (11/16/18 7:56 AM) Height 147/86 mmHg *HI* (11/16/18 10:30 AM) 147/82 mmHg *HI* (11/16/18 10:15 AM) 145/82 mmHg *HI* (11/16/18 10:00 AM) Blood Pressure [90-140/60-90 mmHg] 20 BRMIN (11/16/18 10:45 AM) 16 BRMIN (11/16/18 10:30 AM) 13 BRMIN *LOW* (11/16/18 10:15 AM) Respiratory Rate [14-20 BRMIN] 88.636 kg (11/16/18 7:56 AM) Weight 26.5 m2 (11/16/18 7:56 AM) Body Mass Index Problem List Condition Effective Dates Status Health [...] Reactions, Alerts No Known Medication Allergies Medications ANES flumazenil 0.2 mg, 2 mL, Route: IVP, Drug form: INJ, PRN, Dosing Weight 88.545, kg, PRN Marshal zodiazepine Reversal, Initial dose, Start date: 11/15/18 12:40:00 CDT, Duration: 30 day, Stop date: 12/15/18 12:39:00 CDT Notes: (Same as: Romazicon) Start Date: 11/15/18 Stop Date: 11/17/18 Status: Discontinued ANES metoprolol 1 mg, 1 mL, Route: IVP, Drug form: INJ, Q5Min, Dosing Weight 88.545, kg, PRN Oth er -See Comment, Start date: 11/15/18 12:40:00 CDT, Duration: 5 doses or times, Stop date: Limited # of times Notes: (Same as: Lopressor)Push over 2 minutes Start Date: 11/15/18 Stop Date: 11/17/18 Status: Discontinued ANES naloxone 0.4 mg, 1 mL, Route: IVP, Drug form: INJ, Q2MIN, Dosing Weight 88.545, kg, PRN N arcotic Reversal, Start date: 11/15/18 12:40:00 CDT, Duration: 8 doses or times, Stop date: Limited # of times Notes: Same as Narcan Start Date: 11/15/18 Stop Date: 11/17/18 Status: Discontinued ANES ondansetron 4 mg, 2 mL, Route: IVP, Drug form: INJ, ONCE, Dosing Weight 88.545, kg, PRN Naus ea & Vomiting, Start date: 11/15/18 12:40:00 CDT Notes: (Same as: Zofran) MEDICATION WASTE Product Size: 4 mgProduct Was soraida: ___ mg Start Date: 11/15/18 Stop Date: 11/17/18 Status: Discontinued aspirin 81 mg, PO, Daily Start Date: 11/16/18 Status: Ordered Lactated Ringers Injection IV 1,000 mL 1,000 mL, Rate: 25 ml/hr, Infuse over: 40 hr, Route: IV, Dosing Weight 88.545 kg , Total Volume: 1,000, Start date: 11/16/18 6:46:00 CDT, Duration: 30 day, Stop date: 12/16/18 6:45:00 CDT, 2.13, m2 Start Date: 11/16/18 Stop Date: 11/16/18 Status: Discontinued Sodium Chloride 0.9% IV 1,000 mL 1,000 mL, Rate: 25 ml/hr, Infuse over: 40 hr, Route: IV, Dosing Weight 88.636 kg , Total Volume: 1,000, Start date: 11/16/18 7:56:00 CDT, Duration: 30 day, Stop date: 12/16/18 7:55:00 CDT, 2.13, m2 Start Date: 11/16/18 Stop Date: 11/17/18 Status: Discontinued Results Most recent to 1 oldest [Reference Range]: Potassium Lvl 4.3 mEq/L [3.5-5.1 mEq/L] (11/16/18 7:23 AM) Immunizations No data available for this [...]
--- OUTSIDE RECORDS SUMMARY | 2018-12-15 05:19 | XMS REPORT ---
Author Author [facility] Address Unknown Phone Unavailable Care Team Providers Care Tea Bag Packer Name Role Phone Unavailable Unavailable Payers Payer Name Policy Type Policy Number Effective Date Expiration Date Problems This patient has no known problems. Allergies, Adverse Reactions, Alerts Allergy Name Allergy Type Status Severity Reaction(s) Onset Date Inactive Date Treating Clinician Comments No Known Allergies DA Active U 2014-12-01 00:00:00 Medications This patient has no known medications. Encounters Start Date/Time End Date/Time Encounter Type Admission Type Attending [facility] Facility Care Department Encounter ID 2018-11-30 11:33:43 Outpatient [facility] [id number] 2018-12-08 07:38:00 2018-12-08 07:38:00 Outpatient [facility] [id number] 2018-12-03 08:49:00 2018-12-03 08:49:00 Outpatient [facility] [id number] 2018-11-26 11:12:00 2018-11-26 11:12:00 Outpatient [facility] [id number] 2018-11-19 09:32:00 2018-11-19 09:32:00 Outpatient [facility] [id number] 2018-11-16 07:01:00 2018-11-16 07:01:00 Outpatient [id number] 2018-10-27 08:00:00 2018-10-27 08:00:00 Outpatient [facility] [id number] 2018-10-08 08:56:00 2018-10-08 08:56:00 Outpatient [facility] [id number] 2018-10-05 12:37:00 2018-10-05 12:37:00 Outpatient [facility] [id number] 2018-09-20 10:57:00 2018-09-20 10:57:00 Outpatient [facility] [id number] Results Test Description Test Time Test Comments Text Results Atomic Results Result Comments GLUBED 2018-11-30 11:51:00 GLUBED (test code=GLUBED) 239 mg/dL 74-106 Performed by certified loader operator supervisor at [facility] [id number] 07:11:00* Test Item Value Reference Range Comments GLUBED (test code=GLUBED) 197 mg/dL 74-106 Performed by certified loader operator supervisor at [facility]
--- OUTSIDE RECORDS SUMMARY | 2018-12-15 05:19 | XMS REPORT | Summary of Care ---
Author Author [facility] Organization [facility] Address Unknown Phone Unavailable Encounter DIANDRA Johnson(ANNITA) [id number] Date(s): 10/27/18 - 10/27/18 [facility] [address] [place] [address]- Discharge Disposition: Home or Self Care Attending [...] recent to 1 oldest [Reference Range]: eGFR 48 mL/min/1.73m2 1 *NA* (10/27/18 8:09 AM) Macrophage BF 88 % *NA* (10/27/18 8:09 AM) AGAP [10.0-20.0 10.8 mEq/L mEq/L] (10/27/18 8:09 AM) Color BF [Colorless] Light Yellow (10/27/18 8:09 AM) Lymph BF 6 % *NA* (10/27/18 8:09 AM) Neutrophils BF 2 % *NA* (10/27/18 8:09 AM) RBC BF 143 /mm3 *NA* (10/27/18 8:09 AM) Supernat BF Light Yellow [Colorless] *ABN* (10/27/18 8:09 AM) Clarity BF [Clear] Clear (10/27/18 8:09 AM) Nucleated Cells BF 125 /mm3 *NA* (10/27/18 8:09 AM) BUN [7-22 mg/dL] 31 mg/dL *HI* (10/27/18 8:09 AM) Calcium Lvl 7.8 mg/dL [8.5-10.5 mg/dL] *LOW* (10/27/18 8:09 AM) Chloride Lvl [95-109 106 mEq/L mEq/L] (10/27/18 8:09 AM) CO2 [24-32 mEq/L] 22 mEq/L *LOW* (10/27/18 8:09 AM) Creatinine Lvl 1.53 mg/dL [0.50-1.40 mg/dL] *HI* (10/27/18 8:09 AM) CellCnt BF Type Paracen (10/27/18 8:09 AM) Glucose Lvl [70-99 257 mg/dL mg/dL] *HI* (10/27/18 8:09 AM) Potassium Lvl 4.8 mEq/L [3.5-5.1 mEq/L] (10/27/18 8:09 AM) [place] BF Occasional (10/27/18 8:09 AM) Sodium Lvl [135-145 134 mEq/L mEq/L] *LOW* (10/27/18 8:09 AM) 1Result Comment: The eGFR is calculated [...]
[2018-12-15 07:50] VITALS: BP 112/68
== END | disposition home or self-care (01) ==
LOC: OR 05:14
PROVIDERS: ATTEND Ophthalmology
DX: H25.12 Age-related nuclear cataract, left eye (principal); G57.80 Other specified mononeuropathies of unspecified lower limb; B19.20 Unspecified viral hepatitis C without hepatic coma; E11.22 Type 2 diabetes mellitus with diabetic chronic kidney disease; I12.9 Hypertensive chronic kidney disease with stage 1 through stage 4 chronic kidney disease, or unspecified chronic kidney disease; N18.9 Chronic kidney disease, unspecified; K74.69 Other cirrhosis of liver; R18.8 Other ascites; I85.10 Secondary esophageal varices without bleeding; Z79.4 Long term (current) use of insulin
CPT/HCPCS: 36415; 66984; 82948; V2632; J1817